=== PATIENT | male | born 1990 | race African-American/Black ===

== ENCOUNTER 2017-11-15 12:46 | Emergency (ER) | payer OTHER ==
[2017-11-15] MEDS: ONDANSETRON 4 MG ORAL DISINTEGRATING TAB (S0181) PO (14:30)
== END 2017-11-15 14:45 | disposition home or self-care (01) ==
LOC: M ED 12:46
DX: R10.9 Unspecified abdominal pain (principal); R11.2 Nausea with vomiting, unspecified; E86.0 Dehydration
CPT/HCPCS: 99283